=== PATIENT | male | born 1975 | race Caucasian/White ===

== ENCOUNTER → 2019-01-20 16:14 | Outpatient (CLI) | payer MEDICARE, MEDICAID, SELFPAY ==
[2019-01-04 10:31] VITALS: BMI 23.1
--- NOTE | 2019-01-20 16:17 | US_ITS ---
STUDY: NECK SOFT TISSUE ULTRASOUND REASON FOR EXAM: Male, 43 years old. Neck pain TECHNIQUE: Ultrasound evaluation of the neck soft tissue was performed with real-time and static maxwell-scale imaging. COMPARISON: None. FINDINGS: There is a subcutaneous hypoechoic 4 x 2 x 6 mm nodule with posterior acoustic enhancement. US/Head/Neck Soft Tissue IMPRESSION: Subcutaneous cystic-appearing nodule over the area of the palpable lump. Electronically Signed: Carl Smiley DO at 21:01 EDT Tel [phone], Service support ,
== END ==
PROVIDERS: Referring Provider Surgery; Visit Provider Surgery
DX: L98.9 Disorder of the skin and subcutaneous tissue, unspecified (principal); M54.2 Cervicalgia
CPT/HCPCS: 76536

== ENCOUNTER 2020-09-05 19:59 | Emergency (ER) | payer MEDICARE, MEDICAID, SELFPAY ==
[2019-01-04 10:31] VITALS: BMI 23.1
[2020-09-05 20:00] VITALS: BP 143/93; PULSE 82; RESP 17; TEMP 36.3; O2SAT 96; BMI 24.9
[2020-09-05] MEDS: Cephalexin 500 MG Capsule PO (20:20)
--- NOTE | 2020-09-05 20:50 | ED.VISSUMM ---
- ER Visit Summary Date of Service: 09/05/20 Chief Complaint: Abscess to neck History of Present Illness: The patient is a 45 M who presents with an abscess to his neck that has been getting worse over the past 3 to 4 days. Patient states it feels swollen, inflamed, and burning. Patient states it is localized to the back of his neck. Patient states he was using some clippers to give himself a haircut. Patient states the clippers were dull and hold some of the hairs out of his neck area. Patient states the pain is been getting progressively worse. Patient denies any fevers or chills. Patient denies any discharge or drainage. Patient does admit to a headache. Physical Examination: Vital signs are stable. Patient is afebrile. Patient is in no acute distress. Skin is warm dry. There is a superficial abscess noted over the posterior cervical area. There is minimal fluctuance. There is a small pustule noted. There is no active discharge or drainage. Neck is supple. Trachea is midline. There is no JVD or lymphadenopathy. Emergency Department Course and Treatment: The area was cleaned with chlorhexidine prep. The area was anesthetized with 1% plain lidocaine locally. A small cruciate incision was made using an 11 blade scalpel. A small amount of purulent drainage was expressed. The wound was left open. Bacitracin dressing was applied. Patient tolerated the procedure well. Patient was instructed to use warm compresses. Patient was given a dose of Keflex here. Patient was given a prescription for Keflex. Patient was instructed to follow-up with her primary care physician in 5 to 7 days. Patient understood and was agreeable with the plan. All questions were answered. Disposition: Discharge home Impression: Abscess to neck This note was generated with [employer] dictation software. It may contain incorrect words, spelling, and punctuation that were not noted in review of the chart prior to signing ED Disposition - Plan for ED Patient: Disposition: Home or Assisted Living Diagnosis: Abscess of neck Instructions: ED Abscess Incision And Drainage Prescriptions: Cephalexin [Keflex] 500 mg PO Q6 #40 cap Transmission Status: Received by [id number] Referrals: Shukri Mckeon MD [NON-STAFF] - 5-7 Days
[2020-09-05] MEDS: Lidocaine 1% (20 ml mdv) 20 ML Vial INFILT (20:54)
[2020-09-05 21:10] VITALS: RESP 16
== END 2020-09-05 21:11 | disposition home or self-care (01) ==
PROVIDERS: Emergency Provider Emergency Medicine
DX: L02.11 Cutaneous abscess of neck (principal); R51.9 Headache, unspecified
CPT/HCPCS: 10060; 99283

== ENCOUNTER 2020-10-25 14:04 | Emergency (ER) | payer MEDICARE, MEDICAID, SELFPAY ==
[2020-10-25 14:06] VITALS: BP 154/73; PULSE 83; RESP 15; TEMP 36.1; O2SAT 96; BMI 25.0
--- NOTE | 2020-10-25 14:26 | ED.VIS.GEN ---
History of Present Illness Chief Complaint: Abscess Onset: Today Narrative: 45-year-old male presents with concern for wound check of his neck. Patient states that he was admitted [facility] 2 days ago for an abscess to his left neck. States that they removed a cyst from his neck. States that the packing fell out and this concerned him. Denies any persistent fever or chills. States that it is actually improving. States that he is concerned because he has been unable to pack this at home. Past Medical History - Allergies and Home Meds Allergies/Adverse Reactions: Allergies No Known Allergies Allergy (Verified 10/25/20 14:09) Primary Care Physician: Care Physician,No Primary [Primary Care Provider] - Prior records reviewed: Yes Past Medical History: None Surgical History: - - hernia and sebaceous cyst removal Lives: Spouse/ Significant Other Smoking Status: Never smoker Alcohol: None Drugs: None Review of Systems General: Denies: Chills, Fever, Sweats Eyes: Denies: Visual changes - bilaterally, Diplopia ENT: Denies: Rhinorrhea, Sore throat Cardiovascular: Denies: Chest pain, Palpitations Respiratory: Denies: Dyspnea, Cough, Dyspnea on exertion Gastrointestinal: Denies: Abdominal pain, Nausea, Vomiting, Diarrhea, Melena, Hematochezia Genitourinary: Denies: Dysuria, Hematuria, Frequency Musculoskeletal: Denies: Back pain, Extremity Pain Skin: Reports: Abscess, Wounds. Denies: Rash Neurological: Denies: Headache, Weakness, Numbness Physical Exam Vital Signs/Narrative: Vital Signs Temp Pulse Resp BP Pulse Ox 10/25/20 14:06 96.9 F L 83 15 154/73 H 96 Inital Vital Signs reviewed: Yes General: Well nourished, Well developed, No Acute Distress Head: Normocephalic, Atraumatic Eyes: Perrl, EOMI ENT: Moist mucous membranes, No rhinorrhea Neck: Supple, Nontender Cardiovascular: Regular rate, Regular rhythm, No murmurs Respiratory: No distress, CTA bilaterally, Chest nontender Abdomen: Soft, Nontender, Nondistended, Normal bowel sounds Back: Nontender, Normal Inspection Extremities: Nontender, No edema Skin: Normal color, No rash, - - Left neck abscess. Open and draining. No surrounding erythema. Neurological: Alert, Oriented x3, Cranial nerves II-XII grossly intact, Normal Strength, Normal Sensation Psychological: Normal affect, Normal Mood Diagnostic/Tx/Re-eval - Medical Decision Making Appears well and nontoxic. This is actively draining. Patient does have some pain when moving his neck. There does appear to be fluctuance somewhat inferior to the incision. I did advise the patient needs a repeat CT here in the emergency department. Patient is refusing at this time and just wants this to be redressed. The wound will be redressed and the patient will be asked to keep his appointment with his surgeon who removed the cyst. Patient will be signed out AGAINST MEDICAL ADVICE. Impression: 1. Left neck abscess - draining 2. Against medical advice ED Disposition - Plan for ED Patient: Disposition: Against Medical Advice Instructions: ED Abscess Incision And Drainage Referrals: Hilary Billy MD [STAFF PHYSICIAN] - 2 Days
[2020-10-25] MEDS: Ibuprofen 600 MG Tablet 800 MG PO (14:50)
--- NOTE | 2020-10-25 14:52 | ED.RN ---
patient asked other nurse to let him leave as this nurse walking in. He states he does not want the CT or IV and just wants to talk to the doctor about some question. He would like IBU before discharge. Patient discussed care with doctor.
== END 2020-10-25 14:56 | disposition left against medical advice (07) ==
PROVIDERS: Emergency Provider Emergency Medicine; PCP Internal Medicine
DX: L02.11 Cutaneous abscess of neck (principal); Z53.29 Procedure and treatment not carried out because of patient's decision for other reasons
CPT/HCPCS: 99282